=== PATIENT | female | born 1930 | race Caucasian/White ===

== ENCOUNTER 2017-12-11 14:27 | Inpatient (IN) | payer OTHER ==
[~2017-12-11] VITALS: Ht 157.5 cm; Wt 103.4 kg
[~2017-12-11 14:27] MED LIST: APAP650 PO; AVELOX400 MG PO; AZITHROMYCIN 2250 MG PO; BUMETANIDE2 M1 PO; BUMEX2 MG PO; BUPROPION PO; CARVEDILOL12.5 MG; CARVEDILOL12.5 MG PO; CENTRUM SILVER1 EACH PO; COUMADIN 2 MG TA2 M1 PO; COUMADIN 2.5MG2.5 M1 PO; COZAAR 50 MG TA50 M1 PO; COZAAR 50 MG TA50 MG PO; CRESTOR20 MG PO; DARVOCET-N 1001 EACH PO; GLUCOTROL10 MG PO; JANUVIA100 MG PO; KEFLEX500 MG PO; KLOR-CON 10 ER10 MEQ PO; KLOR-CON 1010 MEQ PO; LOPRESSOR50 PO; LUMIGAN2.5 M1 OP; MAGNES; MAGNESIUM400 MG PO; MECLIZINE 25 MG25 M1 PO; MECLIZINE HCL12.5 MG; MOTION SICKNESS25 M4 PO; MUCINEX TA600 MG/TA1 PO; MUCINEX TA600 MG/TA2 PO; MUCINEX600 MG PO; MULTIPLE VITAM1 EAC3 PO; NYAMYC15 GM TOP; NYSTATIN 100,0015 G1 TOP; OS-CAL 500+D C1 EACH PO; OS-CAL 500+D31 EAC1 PO; PEPCID40 MG; PHENADOZ25 MG RC; PHENERGAN 25 MG25 M1 PO; PREDNISONE 20 M20 M1 PO; SOTALOL 120 MG120 MG PO; SOTALOL120 MG PO; SYNTHROID75 MCG PO; WELLBUTRIN 100100 M1; WELLBUTRIN 100100 MG PO; XIFAXAN550 M1 PO; XOPENEX 0.63 MG/3 M1 IH; XOPENEX 1.25 MG/3 ML IH; XOPENEX HF1 UDINHALE IH; XOPENEX0.63 MG/3 IH; ZOFRAN ODT4 MG PO
[2017-12-11 14:34] VITALS: BP 156/62
[2017-12-11 14:58] LABS: ABSOLUTE BASOPHILS 0.1 thou/uL (0.0-0.2); ABSOLUTE EOSINOPHILS 0.4 thou/uL (0.0-0.7); ABSOLUTE LYMPHOCYTES 2.1 thou/uL (0.8-5.3); ABSOLUTE MONOCYTES 0.7 thou/uL (0.0-1.2); ABSOLUTE NEUTROPHILS 6.3 thou/uL (1.6-8.1); BASOPHILS 0.8 %; EOSINOPHILS 3.9 %; HEMATOCRIT 41.8 % (37.0-47.0); HEMOGLOBIN 13.8 gm/dL (12.0-15.0); LYMPHOCYTES 22.2 %; MCH 29.1 pg (26.0-34.0); MCHC 33.1 g/dL (28.0-37.0); MCV 87.9 fL (80.0-100.0); MONOCYTES 7.7 %; MPV 8.5 fl. (7.2-11.1); NUCLEATED RBCS 0 /100WBC; PLATELET COUNT* 223 thou/uL (150-400); POLYS 65.4 %; RBC 4.75 mil/uL (4.20-5.00); RDW-CV 15.4 % (10.5-14.5); WBC 9.6 thou/uL (4.0-11.0)
[2017-12-11 15:07] LABS: CALCIUM 9.2 mg/dL (8.5-10.1); CREATININE 1.9 mg/dL (0.6-1.3); POTASSIUM 4.6 mmol/L (3.5-5.1)
[2017-12-11 15:11] LABS: ALBUMIN 3.5 g/dL (3.4-5.0); TOTAL BILIRUBIN 0.5 mg/dL (<0.1-1.0); TOTAL PROTEIN 6.3 g/dL (6.4-8.2)
--- NOTE | 2017-12-11 19:43 | NUR ---
REC REPROT FROM ED-RN AT THIS TIME.
[2017-12-11 19:48] VITALS: BP 123/44
[2017-12-11 20:30] VITALS: BP 119/59
[2017-12-11] MEDS ORDERED: PACERONE 200 M200 M1 PO (23:37)
[2017-12-11] MEDS ORDERED: CLARITIN10 MG PO (23:38)
[2017-12-11] MEDS ORDERED: PROBIOTIC1 EAC1 PO (23:38)
[2017-12-11] MEDS ORDERED: ELIQUIS5 MG PO (23:38)
[2017-12-11] MEDS ORDERED: REFRESH TEARS15 ML OPHTHALMIC (23:39)
[2017-12-11] MEDS ORDERED: ARTHRITIS PAIN650 M3 PO (23:41)
[2017-12-12] VITALS: BP 151/57
--- NOTE | 2017-12-12 00:48 | NUR ---
PT A/O X 3-4, RA, A/V PACED ON THE MONITOR, ADMIT ASSESSMENT COMPLETED, PICTURES TAKEN OF BILAT UNDERBREAST AREAS-SEE CHART, SON ARRIVED AND PROVIDED WRITTED LIST OF HOME MEDICATIONS AND STATED SHE IS A DNR, PT CONFIRMED DNR STATUS, SPOKE TO DR MG REGARDING MEDICATIONS ORDERED/ADMINISTERED BASED OFF HIS ENTERED ORDERS IN [place] AND THAT THE LIST THE SON PROVIDED HAS BEEN COMPARED WITH CHANGES MADE TO THE HOME MED REC AT THAT TIME, DR MG STATED HE WILL REVIEW THE CHANGES IN THE MORNING, DNR STATUS CHANGE APPROVED BY DR MG AND ENTERED BY ME AT THAT TIME WELL PTS HOME MEDICATION FOR DIZZINESS, PT HAS FELT VERY NAUSEOUS, ZOFRAN GIVEN, PT SO FAR TOLERATED PO MED FOR HER DIZZINESS, SON AT BED SIDE FOR THE NIGHT, VSS, HOURLY ROUNDING/FALL PRECAUTIONS IN PLACE WITH BED IN LOW LOCKED POSITION WITH CALL LIGHT AT HER SIDE, WILL CONT TO MONITOR.
[2017-12-12 04:25] VITALS: BP 129/46
[2017-12-12 06:00] LABS: URINE BILIRUBIN NEGATIVE (Negative); URINE BLOOD NEGATIVE (Negative); URINE CLARITY CLEAR; URINE COLOR YELLOW; URINE GLUCOSE-RANDOM NEGATIVE (Negative); URINE KETONES NEGATIVE (Negative); URINE LEUKOCYTES-REFLEX NEGATIVE (Negative); URINE NITRITE-REFLEX NEGATIVE (Negative); URINE PROTEIN NEGATIVE (Negative); URINE UROBILINOGEN 0.2 E.U./dl (0.2-1.0)
--- NOTE | 2017-12-12 06:12 | NUR ---
PT UNABLE TO TOLERATE TURNS DUE TO HER NAUSEA. ZOFRAN ADMINISTERED X2 THUS FAR AND HOME MED FOR DIZZINESS GIVEN ONCE. NO OTHER CHANGES WITH PT THUS FAR. SON STILL AT BEDSIDE.
[2017-12-12] MEDS ORDERED: SYNTHROID50 MCG PO (06:32)
--- NOTE | 2017-12-12 08:15 | NUR ---
ASSUMED PT. CARE AND RECEIVED REPORT AT 0730. PT A/OX4, VSS, MONITOR ON TRACING AV PACED. PT. ON RA 94%. PT. TONAWANDA, REQUIRING STAFF TO COMMUNICATE BY WRITING DOWN INFO. PT. DENIES LEG PAIN INITIALLY, UNTIL SHE IS UP TO BSC THEN STATES IT IS BETTER 4/10 THAN LAST NIGHT, BUT STILL PRESENT. DISCUSSED GETTING PO PAIN MED ORDERED FOR HER BECAUSE SHE DOES NOT WANT MORPHINE. PT. SON AT BEDSIDE. FULL ASSESSMENT COMPLETED, REFER TO CHARTING. FALL PRECAUTIONS IN PLACE, WILL CONTINUE WITH PLAN OF CARE.
[2017-12-12 09:30] VITALS: BP 116/52
[2017-12-12 12:00] VITALS: BP 106/53
--- NOTE | 2017-12-12 12:23 | EKG ---
[place] [address] ELECTROCARDIOGRAM REPORT Name: JOELKENNETHSami Keller Room: [address] ADM IN M.R.#: [id number] Admission: 12/11/17 Attend Phys: Kamran Bell, Discharge: Date of : 32 Report #: [id number] THIS REPORT FOR: //name// [facility] ED Test Date: 2017-12-11 Test Time: 14:49:20 Pat Name: ANIBAL MALDONADO Department: Room: [facility] Gender: F Grant Specialist: Esme WELLINGTON : 1930 Requested By: Nadia Monroe Order Number: [id number] MD: Mt Zacarias Measurements Intervals [place] Rate: 61 P: 139 SD: 141 QRS: -64 QRSD: 166 T: 49 QT: 598 QTc: 603 Interpretive Statements Atrial-ventricular dual-paced rhythm No further analysis attempted due to paced rhythm Baseline wander in lead(s) I,III,aVL Compared to ECG 10/15/2016 02:54:51 Atrial-paced complex(es) or rhythm no longer present Right bundle-branch block no longer present Left ventricular hypertrophy no longer present Electronically Signed On 12-12-2017 12:23:27 CLOSER ON by Mt Zacarias [email or web address] <ELECTRONICALLY SIGNED> By: Mt Zacarias MD, [facility] 12/12/17 1223 1449 1449 Mt Zacarias MD, [facility] /EPI
[2017-12-12 12:51] LABS: HEMATOCRIT 40.2 % (37.0-47.0); HEMOGLOBIN 13.2 gm/dL (12.0-15.0); MCH 29.3 pg (26.0-34.0); MCHC 32.9 g/dL (28.0-37.0); MCV 88.9 fL (80.0-100.0); MPV 8.7 fl. (7.2-11.1); RBC 4.52 mil/uL (4.20-5.00); RDW-CV 15.5 % (10.5-14.5); WBC 8.4 thou/uL (4.0-11.0)
[2017-12-12 12:58] LABS: CALCIUM 8.4 mg/dL (8.5-10.1); CREATININE 1.7 mg/dL (0.6-1.3); MAGNESIUM 1.8 mg/dL (1.8-2.4); POTASSIUM 4.4 mmol/L (3.5-5.1)
[2017-12-12 15:30] VITALS: BP 89/38
--- NOTE | 2017-12-12 19:37 | NUR ---
PT. TREATED WITH TRAMADOL FOR LEG PAIN, TOLERATED WELL AND DECREASED PAIN IN LE. MID AFTERNOON PT. STARTED C/O RIGHT SHOULDER PAIN. INITIALLY TREATED WITH ICEY HOT AND COLD PACK. PT. BLOOD PRESSURE TO LOW TO GIVEN IV PAIN MED 90'S/40'S. DR. MG MADE AWARE OF PT. C/O AND BP, ORDERS RECEIVED FOR 500ML FLUID BOLUS. PT. ALSO BEGAN C/O NAUSEA, TREATED WITH IV ZOFRAN. PT. COMPLETED XRAYS PER ORDERS TO ASSESS ABD/SHOULDER. WILL HAVE ULTRASOUND IN MORNING. PT. SON AT BEDSIDE THROUGH OUT THE DAY, UPDATED ON PLAN OF CARE. PT. UP TO CHAIR FOR COMPLETE BATH/HAIR WASHING. HOURLY ROUNDING COMPLETED THROUGH OUT THE DAY FOR PT. SAFETY.
[2017-12-12 21:00] VITALS: BP 111/52
[2017-12-13] VITALS: BP 105/43
--- NOTE | 2017-12-13 01:55 | NUR ---
PT A/OX4, RA, A/V PACED ON THE MONITOR, UP WITH 1 TO BSC, STRESS INCONT, Q2T, PAIN/NAUSEA/DIZZINESS TREATED, MEDS/ASSESSMENT COMPLETED, FALL PRECAUTIONS IN PLACE WITH BED ALARM SET, HOURLY ROUNDING IN PLACE, VSS, WILL CONT TO MONITOR. SON AT BEDSIDE OVER NIGHT.
[2017-12-13 03:57] VITALS: BP 105/55
[2017-12-13 05:22] LABS: HEMATOCRIT 37.5 % (37.0-47.0); HEMOGLOBIN 12.3 gm/dL (12.0-15.0); MCHC 32.7 g/dL (28.0-37.0); MCV 88.7 fL (80.0-100.0); MPV 9.7 fl. (7.2-11.1); RBC 4.23 mil/uL (4.20-5.00); RDW-CV 15.7 % (10.5-14.5); WBC 9.7 thou/uL (4.0-11.0)
[2017-12-13 05:50] LABS: CREATININE 2.1 mg/dL (0.6-1.3); MAGNESIUM 1.9 mg/dL (1.8-2.4); POTASSIUM 5.3 mmol/L (3.5-5.1)
[2017-12-13 11:53] VITALS: BP 104/50
[2017-12-13 12:04] LABS: CALCIUM 8.2 mg/dL (8.5-10.1); CREATININE 2.4 mg/dL (0.6-1.3)
[2017-12-13 12:05] LABS: POTASSIUM 5.3 mmol/L (3.5-5.1)
--- NOTE | 2017-12-13 12:23 | NUR ---
Nutrition: Consult received for "pt doesn't wear teeth." Pt was asleep at time of visit, 12:00. Diet is now ordered as Mech Chopped with CHO count. Wt: 220# which is usual. K+ 5.3, BG 200s. Pt received DM educ in 2008. Hopeful for good intake of Mech-Chopped diet and better BG control. No other nutrition interventions needed at this time. Will follow up per protocol. Low nutrition risk.
--- NOTE | 2017-12-13 12:51 | NUR ---
Pt sound asleep when CM went to assess. Cm left message for Pt's family regarding living situation. CM will f/u later.
--- NOTE | 2017-12-13 13:00 | NUR ---
DR. GUERRERO INTO ASSESS PT. BMP RESULTS GIVEN TO ON FLOOR, CREATINE UP TO 2.4. ORDER RECEIVED FOR FLUID BOLUS OF 100ML. IV ASSESS TO ENSURE NOT INFILTRATED AND SHE IS RECEIVING IVF. APPEARS TO BE INTACT, NEW IV STARTED JUST TO ENSURE INFUSION AND IVF BOLUS INITIATED PER ORDER. PT. NOT RESPONDING WHEN STUCK WITH NEEDLE AND WILL NOT AROUSE WITH NORMAL ATTEMPTS. DEEP STERNAL RUB NEEDED FOR PT. TO RESPONDE. PT. STATED WHEN AROUSED TO "STOP, I DONT' WANT TO BE RESUSCITATED". DR. GUERRERO ON UNIT, NOTIFIED OF PT. CURRENT STATE. NEW ORDER FOR ABG OBTAINED. WILL CONTINUE TO MONITOR.
--- NOTE | 2017-12-13 13:14 | NUR ---
CM ASSESSMENT: CM spoke with Pt's son, Sawyer, via phone. Son states that Pt is IONE. Pt resides at home with her granddaughter, who assists with ADLs. Pt has a pd CG in the home on Wednesday- for 8 hours/day. Hx of HH, son does not remember the name of the agency. Hx of Skilled at [facility]. Son believes that Pt could benefit from a skilled stay, but also knows that Pt did not like her stay while at [facility]. Plan is for Pt to return home with HH. Continue to awake call back from Pt's granddaughter. Following.
--- NOTE | 2017-12-13 14:40 | NUR ---
DR. GUERRERO NOTIFIED THAT PT. IS REFUSING ABG. FAMILY AT BEDSIDE AND AWARE. STATES SHE DOES NOT WANT TO WEAR BIPAP ANYWAY, SO NO REASON IN DOING THE TEST. PT. IS MORE RESPONSIVE WITH STAFF CURRENTLY. SHE WILL TELL US TO LEAVE HER ALONE WHEN ATTEMPTING TO DO CARE.
[2017-12-13 16:57] VITALS: BP 114/58
[2017-12-13 17:07] LABS: GLYCOHEMOGLOBIN (HGB A1C) 9.2 % (4.8-5.6)
--- NOTE | 2017-12-13 17:38 | NUR ---
PT. BECOMING MORE ALERT, AWAKENING. PT. UP TO BS AND CHAIR TO VISIT WITH FAMILY. PT. BACK TO WHERE SHE WAS YESTERDAY WITH COGNITION. TREATED WITH OXYCODONE THIS AFTERNOON FOR PAIN AND STATED RELIEF OF PAIN AT THIS TIME. SHE ALSO STATED THAT THE LIDOCAINE PATCH HELPED WELL. PT. APPETITE POOR. SHE STATES THE ONLY THING THAT SOUNDS GOOD IS ICE CREAM, SHE HAS EATEN ICE CREAM ONLY FOR BREAKFAST AND DINNER. HOURLY ROUNDING COMPLETED THROUGH OUT THE DAY FOR PT. SAFETY.
[2017-12-13 20:00] VITALS: BP 111/57
--- NOTE | 2017-12-13 23:09 | NUR ---
PT A/OX3, RA, PACE RHYTHM ON THE MONITOR, VSS, REPORTED 0/10 PAIN, MEDS/ASSESSMENT PER CHARTING, HOURLY ROUNDING IN PLACE, FALL PRECAUTIONS IN PLACE WITH BED IN LOW LOCKED POSITION WITH ALARM SET, CALL LIGHT IN REACH, PT UP TO BSC WITH ASSIST X1, REQUIRES ASSIST X2 TO BOOST IN BED, PT REPORTED HER SON LEFT TODAY AND SHE WISHES HE'D COME BACK TO VISIT, NYSTATIN PWDR UTILIZED, PAIN PATCH D/C'ED AT , INFORMED PT SHE WILL HAVE IT PLACED ON AGAIN IN THE AM, WILL CONT TO MONITOR.
[2017-12-14] VITALS: BP 113/59
[2017-12-14 04:13] VITALS: BP 116/48
[2017-12-14 05:08] LABS: HEMATOCRIT 38.7 % (37.0-47.0); HEMOGLOBIN 12.5 gm/dL (12.0-15.0); MCH 29.6 pg (26.0-34.0); MCHC 32.2 g/dL (28.0-37.0); RBC 4.21 mil/uL (4.20-5.00); RDW-CV 16.8 % (10.5-14.5); WBC 10.2 thou/uL (4.0-11.0)
[2017-12-14 05:45] LABS: ALBUMIN 2.9 g/dL (3.4-5.0); CREATININE 2.4 mg/dL (0.6-1.3); MAGNESIUM 1.8 mg/dL (1.8-2.4); PHOSPHORUS* 4.3 mg/dL (2.5-4.9)
[2017-12-14 05:46] LABS: POTASSIUM 3.8 mmol/L (3.5-5.1)
[2017-12-14 08:30] VITALS: BP 110/83
--- NOTE | 2017-12-14 08:30 | NUR ---
ASSUMED PT. CARE AND RECEIVED REPORT AT 0730. PT A/OX4, VSS, MONITOR ONT RACING AV PACED. PT. ON RA @ 92%. PT. MORE ALERT AND ENERGENTIC THIS MORNING. UP TO BSC AND THEN CHAIR FOR BREAKFAST. PT. ATE 100% ON BREAKFAST. C/O OF PAIN IN LEGS WITH ACTIVITY, TREATED WITH PRN MED. FULL ASSESSMENT COMPLETED, REFER TO CHARTING. RIGHT FOREARM IV INFILTRATED, IV REMOVED AND FLUIDS RESTARTED IN 2ND IV ALREADY IN PLACE. LIGHT PRESSURE WRAP PLACED ON ARM AT INFILTRATE FOR PT. COMFORT. CALL LIGHT IN REACH, WILL CONTINUE WITH PLAN OF CARE.
[2017-12-14 11:54] VITALS: BP 121/49
--- NOTE | 2017-12-14 15:49 | CON ---
[address] [address] CONSULTATION Name: ANIBAL MALDONADO Room: [address] IN .R.#: [id number] Admission: 12/11/17 Attend Phys: Kamran Bell, Discharge: Date of : 32 Report #: [id number] THIS REPORT FOR: //name// CC: ASHLEY physician/PCP Kamran Bell DATE OF SERVICE: 12/13/2017 REQUESTING PHYSICIAN: Dr. Bell. REASON FOR CONSULTATION: Acute kidney injury. HISTORY OF PRESENT ILLNESS: An 87-year-old female who was admitted 12/11/2017 with bilateral lower extremity edema and elevated creatinine. I am asked to see for elevated creatinine. On 12/11/2017, her creatinine was 1.9, then up to 2.1, then up to 2.4 today. She presently appears to be comfortable. She is very hard of hearing. She has family present at the bedside. She presently does not have any complaints other than chronic leg pain. She has also been having some nausea. REVIEW OF SYSTEMS: Constitutional, psych, heme, eyes, ENT, respiratory, cardiac, GI, , endocrine, all negative except as documented above. PAST MEDICAL HISTORY: Diabetes, hypothyroidism, hypertension, chronic obstructive pulmonary disease, history of congestive heart failure, history of knee surgery right and left, cataracts. SOCIAL HISTORY: No tobacco. FAMILY HISTORY: Not pertinent in this 87-year-old female. CURRENT MEDICATIONS: Reviewed. PHYSICAL EXAMINATION: VITAL SIGNS: Blood pressure 104/50, pulse 60, respirations 18 and temperature 36.3. GENERAL: No acute distress. HEENT: Eyes, extraocular intact. Ears, externally normal. Very hard of hearing. CARDIOVASCULAR: Regular rate. LUNGS: Decreased breath sounds. ABDOMEN: Soft. LYMPHATICS: Positive swelling. PSYCHIATRIC: Awake, alert. LABORATORY DATA: White blood cell count 9.7, hemoglobin 12.3, platelets 162[place] [address] CONSULTATION Name: ANIBAL MALDONADO Room: [address] IN [facility]#: [id number] Admission: 12/11/17 Attend Phys: Kamran Bell, Discharge: Date of : 32 Report #: [id number] Sodium 130, potassium 5.3, chloride 103, bicarbonate 17, BUN 44, creatinine 2.4, glucose 269, calcium 8.2. ASSESSMENT: 1. Acute kidney injury with a 12/11/2017 creatinine at 1.9, up to 2.4 on 12/13/2017. Urinalysis was okay. Ultrasound did not show any acute kidney findings. 2. Hyponatremia. 3. Hyperkalemia. 4. Metabolic acidosis. 5. Chronic obstructive pulmonary disease. 6. Coronary artery disease. 7. Diabetes. 8. Chronic kidney disease stage 3 with 2017 ultrasound showing renal atrophy and 2016 ultrasound showing kidneys bilaterally less than 9 cm in size. In 12/2015, creatinine was 1.1. PLAN: 1. Losartan was just stopped. Januvia has been stopped. 2. Discontinue lactated Ringers. We will adjust IV fluids and add bicarbonate. 3. Pharmacy consult to renally dose the tramadol. 4. We will monitor closely. Hopefully, with stopping the losartan and gentle hydration renal function will stabilize and improve. We will check labs again in the a.m. Thank you for requesting my opinion in the care and management of this patient. <ELECTRONICALLY SIGNED> By: Gabrielle Rubalcava MD 12/14/17 1549 1615 1901Aignacio Rubalcava MD /nt
[2017-12-14 16:36] VITALS: BP 104/44
[2017-12-14 20:00] VITALS: BP 107/45
--- NOTE | 2017-12-14 20:03 | NUR ---
PT. STABLE THROUGH OUT SHIFT. UP TO CHAIR FOR MEALS. GOOD APPETITE AT BREAKFAST AND DINNER, ATE ICE CREAM ONLY AT LUNCH. PT. TREATED FOR NAUSEA TODAY. NO FURTHER COMPLAINTS OF PAIN SINCE THIS MORNING. PT. MAKING STATEMENTS A FEW TIMES TODAY "I AM READY TO NOW", AND TALKING ABOUT FAMILY MEMBER DOING HER HAIR AT HER . WORKED WITH THERAPY, TOLERATED WELL. HOURLY ROUNDING COMPLETED THROUGH OUT THE DAY FOR PT. SAFETY.
[2017-12-15] VITALS (7 sets, daily range): BP systolic 104–147; BP diastolic 36–77
--- NOTE | 2017-12-15 03:52 | NUR ---
PT ALERT ORIENTED. PROFOUNDLY [place]. TELEMETRY SHOWS AV PACED. 1/2NS WITH WITH 75MEQ SODIUM BICARB INFUSING AT 100MLS/HR. ANTIFUNGAL POWDER TO YEAST AREA UNDER LEANNE BREASTS. UP TO BSC WITH ASSIST OF ONE. WILL CONTINUE TO MONITOR.
[2017-12-15 05:40] LABS: ALBUMIN 2.9 g/dL (3.4-5.0); CALCIUM 8.4 mg/dL (8.5-10.1); CREATININE 2.2 mg/dL (0.6-1.3); MAGNESIUM 1.8 mg/dL (1.8-2.4); PHOSPHORUS* 4.1 mg/dL (2.5-4.9); POTASSIUM 3.2 mmol/L (3.5-5.1)
[2017-12-15 05:45] LABS: HEMATOCRIT 37.1 % (37.0-47.0); HEMOGLOBIN 12.1 gm/dL (12.0-15.0); MCH 28.7 pg (26.0-34.0); MCHC 32.7 g/dL (28.0-37.0); MCV 87.7 fL (80.0-100.0); MPV 9.2 fl. (7.2-11.1); RBC 4.24 mil/uL (4.20-5.00); RDW-CV 15.3 % (10.5-14.5); WBC 12.3 thou/uL (4.0-11.0)
--- NOTE | 2017-12-15 10:59 | NUR ---
RECEIVED PT CARE 0700. PT IS ALERT AND ORIENTED X4. VSS. MACHINE BENDER TRACING AN AV PACED RHYTHM. C/O RIGHT SHOULDER PAIN. PRN PAIN MEDICATION GIVEN WITH GOOD RELIEF. AM ASSESSMENT CHARTED. MEDS PER MAR. UP WITH ASSIST X1 TO BEDSIDE COMMODE. SHE IS VERY HARD OF HEARING. CALL LIGHT WITHIN REACH. WILL CONTINUE TO MONITOR.
--- NOTE | 2017-12-15 12:21 | NUR ---
CONTINUE TO FOLLOW, MET WITH PT AND SPOKE WITH LEXUS OVER THE PHONE. ROXANNE PLANS TO GO OUT OF TOWN ON WEDNESDAY MORNING, BUT PT'S SON WILL BE IN TOWN AND ROXANNE HAS ARRANGED FOR THE PAID CAREGIVER TO STAY WITH PT AROUND THE CLOCK. THEY ARE INTERESTED IN HH AND CHOSE [facility] SHE HAS HAD THEIR SERVICE BEFORE. CALLED AND FAXED INITIAL REFERRAL TO [facility]. ROXANNE STATED PT DOESN'T WALK VERY MUCH AT HOME AND GETS ASSIST WITH ADLS. WILL FOLLOW
[2017-12-16] VITALS: BP 118/94
[2017-12-16 04:20] VITALS: BP 103/50
[2017-12-16 05:15] LABS: HEMATOCRIT 33.8 % (37.0-47.0); HEMOGLOBIN 11.4 gm/dL (12.0-15.0); MCH 29.4 pg (26.0-34.0); MCHC 33.7 g/dL (28.0-37.0); MCV 87.3 fL (80.0-100.0); MPV 8.9 fl. (7.2-11.1); RBC 3.87 mil/uL (4.20-5.00); RDW-CV 15.9 % (10.5-14.5); WBC 9.1 thou/uL (4.0-11.0)
--- NOTE | 2017-12-16 05:32 | NUR ---
PATIENT PROGRESSING TOWARDS GOALS: PATIENT A&OX4, MATCH-E-BE-NASH-SHE-WISH BAND. VSS. GENERAL OPERATIONS MANAGER TRACING AV PACED. PATIENT REMAINS ON ROOM AIR WITH SATS >92%. PATIENT HAD C/O PAIN IN RIGHT SHOULDER THAT WAS RELIEVED WITH BENGAY CREAM AND RELAXATION. PATIENT HAS RESTED WELL THROUGHOUT SHIFT. HOURLY ROUNDING OBSERVED. CALL LIGHT WITHIN REACH
[2017-12-16 06:11] LABS: ALBUMIN 2.6 g/dL (3.4-5.0); CALCIUM 8.3 mg/dL (8.5-10.1); MAGNESIUM 1.7 mg/dL (1.8-2.4); PHOSPHORUS* 3.3 mg/dL (2.5-4.9); POTASSIUM 3.5 mmol/L (3.5-5.1)
[2017-12-16 07:40] VITALS: BP 106/70
--- NOTE | 2017-12-16 10:08 | NUR ---
RECIEVED REPORT FROM LOIS AND ASSUMED CARE OF PT AT 0730. PT IS A/O X4, VSS, LUNGS ARE CLEAR BUT DIMINISHED ON RA. TRACING AV PACED ON MONITOR. IV LEFT FOREARM PATENT SALINE LOCKED. PT IS CALM, COOPERATIVE, AND PLEASANT. PT C/O BACK PAIN- MEDICATION GIVEN AND REPOSITIONED UP TO CHAIR FOR RELIEF. GOALS FOR THE DAY WERE DISCUSSED TO GET UP TO CHAIR FOR MEALS AND PAIN MANAGEMENT. PT EATING BREAKFAST IN CHAIR WITH CALL LIGHT AND FALL PRECAUTIONS IN PLACE. WILL CONTINUE TO MONITOR.
[2017-12-16] MEDS ORDERED: LIDOPATCH1 EACH TOP (11:45)
[2017-12-16] MEDS ORDERED: TRAMADOL 50 MG50 MG PO (11:45)
[2017-12-16] MEDS ORDERED: ACETAMINOPHEN325 M1 PO (11:45)
[2017-12-16 11:58] VITALS: BP 121/51
--- NOTE | 2017-12-16 14:06 | NUR ---
ORDERS RECEIVED FOR DC HOME WITH HH. CALLED AND FAXED DC ORDERS TO [facility]. CALL TO RUFINO/ROYCE. SHE WILL HAVE HER DAD PICK PT UP. NO OTHER NEEDS ID'D
--- NOTE | 2017-12-16 14:57 | NUR ---
DISCHARGE PAPERWORK AND SCRIPTS GONE OVER AND GIVEN TO PT AND FAMILY MEMBER. IV REMOVED AND HEART MONITOR TAKEN OFF. PT WALKED OUT BY TABBY TO FAMILY VEHICLE WITH ALL PERSONAL BELONGINGS @ 8702.
== END 2017-12-16 15:03 | disposition home health service (06) | DRG 683 ==
LOC: M.ERS 14:27 → M.TBA-ER 16:09 → M.2W 16:09
PROVIDERS: Internal Medicine; Physician Assistant; ADMIT Family Medicine
DX: N17.9 Acute kidney failure, unspecified (principal); E87.1 Hypo-osmolality and hyponatremia; E87.2 Acidosis; E03.9 Hypothyroidism, unspecified; J44.9 Chronic obstructive pulmonary disease, unspecified; I50.9 Heart failure, unspecified; E87.5 Hyperkalemia; N18.3 Chronic kidney disease, stage 3 (moderate); E11.22 Type 2 diabetes mellitus with diabetic chronic kidney disease; I25.10 Atherosclerotic heart disease of native coronary artery without angina pectoris; G89.29 Other chronic pain; E11.65 Type 2 diabetes mellitus with hyperglycemia; R26.81 Unsteadiness on feet; I87.8 Other specified disorders of veins; E86.0 Dehydration; Z79.899 Other long term (current) drug therapy; Z88.0 Allergy status to penicillin; Z95.0 Presence of cardiac pacemaker; I25.2 Old myocardial infarction; Z88.8 Allergy status to other drugs, medicaments and biological substances; Z88.1 Allergy status to other antibiotic agents; Z91.041 Radiographic dye allergy status; Z98.42 Cataract extraction status, left eye; Z28.21 Immunization not carried out because of patient refusal; Z98.41 Cataract extraction status, right eye

== ENCOUNTER 2018-01-25 17:06 | Inpatient (IN) | payer OTHER ==
[~2018-01-25] VITALS: Ht 162.6 cm; Wt 90.3 kg
[~2018-01-25 17:06] MED LIST changes: +ACETAMINOPHEN325 M1 PO; +ARTHRITIS PAIN650 M3 PO; +CLARITIN10 MG PO; +ELIQUIS5 MG PO; +LIDOPATCH1 EACH TOP; +PACERONE 200 M200 M1 PO; +PROBIOTIC1 EAC1 PO; +REFRESH TEARS15 ML OPHTHALMIC; +SYNTHROID50 MCG PO; +TRAMADOL 50 MG50 MG PO
[2018-01-25 17:12] VITALS: BP 132/60
[2018-01-25] MEDS ORDERED: DIFLUCAN200 MG PO (17:24)
[2018-01-25] MEDS ORDERED: CLONAZEPAM 0.50.5 M1 PO (17:24)
[2018-01-25] MEDS ORDERED: FISH OIL 1,001000 M2 PO (17:25)
[2018-01-25] MEDS ORDERED: PROTONIX40 M1 PO (17:25)
--- NOTE | 2018-01-25 17:40 | NUR ---
PT HAS SCABBED WOUND ON BRIDGE OF NOSE, PT FAMILY REPORTS IT IS FROM A PREVIOUS HOSPITAL STAY THAT HAS BEEN TREATED WITH ABX WITHOUT HEALING.
[2018-01-25 18:02] LABS: BE 3.5 mmol/L (-2 to +3); HCO3 26.9 mmol/L (22.0-26.0); PCO2 36.9 mmHg (35.0-45.0); PO2 81.8 mmHg (75.0-100.0); pH 7.481 (7.340-7.450)
[2018-01-25 18:02] LABS: HEMATOCRIT 42.4 % (37.0-47.0); HEMOGLOBIN 13.9 gm/dL (12.0-15.0); MCH 28.7 pg (26.0-34.0); MCHC 32.7 g/dL (28.0-37.0); MCV 87.7 fL (80.0-100.0); MPV 8.9 fl. (7.2-11.1); NUCLEATED RBCS 0 /100WBC; PLATELET COUNT* 181 thou/uL (150-400); RBC 4.84 mil/uL (4.20-5.00); RDW-CV 17.2 % (10.5-14.5)
[2018-01-25 18:14] LABS: CREATININE 1.6 mg/dL (0.6-1.3)
[2018-01-25 18:16] LABS: POTASSIUM 2.7 mmol/L (3.5-5.1)
[2018-01-25 18:18] LABS: MAGNESIUM 1.8 mg/dL (1.8-2.4); TOTAL PROTEIN 6.4 g/dL (6.4-8.2)
[2018-01-25 18:43] LABS: ABSOLUTE LYMPHOCYTES 1.8 thou/uL (0.8-5.3); ABSOLUTE MONOCYTES 0.9 thou/uL (0.0-1.2); ABSOLUTE NEUTROPHILS 15.3 thou/uL (1.6-8.1)
[2018-01-25 18:44] LABS: ANISOCYTOSIS Occasional; PLATELET ESTIMATE ADEQUATE
[2018-01-25 20:35] VITALS: BP 133/65
[2018-01-25 23:56] VITALS: BP 123/68
--- NOTE | 2018-01-26 02:47 | NUR ---
RECIEVED REPORT FROM VOLUNTEER RECRUITMENT COORDINATOR, BRUCE, AND ASSUMED CARE OF PATIENT WHEN ADMITTED TO ROOM 231 AT 2039. PATIENT A&OX3-4, EXTREMEMLY HARD OF HEARING AND FAMILY STATES PATIENT HAS AN ONSET OF DEMENTIA. THERE ARE SOME COMMUNICATION BARRIERS , HOWEVER, PATIENT'S FAMILY PRESENT FOR ADMISSION HISTORY. PATIENT DID SAY "YES" TO HAVING THOUGHTS OF HARMING HERSELF. PATIENT IS ON 2L O2 NC WITH SATS >92%. PATIENT DENIES PAIN OR DISCOMFORT. CHEMICAL LABORATORY TESTER TRACING AV PACED. URINE SAMPLE STILL NEEDED, HOWEVER, PATIENT HAS NOT BEEN ABLE TO VOID SINCE TRANSFER. BLADDER SCAN COMPLETED-281 ML NOTED. PATIENT STATES SHE "WILL TRY AGAIN LATER." IVF INFUSING PER ORDERS. CALL LIGHT WITHIN REACH
[2018-01-26 04:27] VITALS: BP 148/59
[2018-01-26 05:42] LABS: ABSOLUTE BASOPHILS 0.1 thou/uL (0.0-0.2); ABSOLUTE LYMPHOCYTES 0.5 thou/uL (0.8-5.3); ABSOLUTE MONOCYTES 0.2 thou/uL (0.0-1.2); ABSOLUTE NEUTROPHILS 14.5 thou/uL (1.6-8.1); BASOPHILS 0.4 %; HEMATOCRIT 39.8 % (37.0-47.0); LYMPHOCYTES 3.1 %; MCH 28.5 pg (26.0-34.0); MCHC 32.7 g/dL (28.0-37.0); MCV 87.3 fL (80.0-100.0); MONOCYTES 1.1 %; MPV 8.9 fl. (7.2-11.1); NUCLEATED RBCS 0 /100WBC; PLATELET COUNT* 160 thou/uL (150-400); POLYS 95.4 %; RBC 4.55 mil/uL (4.20-5.00); WBC 15.2 thou/uL (4.0-11.0)
[2018-01-26 05:56] LABS: ALBUMIN 2.8 g/dL (3.4-5.0); CREATININE 1.5 mg/dL (0.6-1.3); MAGNESIUM 1.9 mg/dL (1.8-2.4); TOTAL BILIRUBIN 0.5 mg/dL (<0.1-1.0); TOTAL PROTEIN 6.2 g/dL (6.4-8.2)
[2018-01-26 05:57] LABS: POTASSIUM 4.4 mmol/L (3.5-5.1)
--- NOTE | 2018-01-26 06:01 | NUR ---
PATIENT PARTIALLY PROGRESSING TOWARDS GOALS: PATIENT'S POTASSIUM SUCCESSFULLY REPLACED-NOW 4.4. PATIENT IS ON THE BEDSIDE COMMODE AT THIS TIME TO ATTEMPT TO VOID. RECENT BLADDER SCAN REVEALED 518ML. HOURLY ROUNDING OBSERVED. CALL LIGHT WITHIN REACH
[2018-01-26 07:16] LABS: URINE BILIRUBIN NEGATIVE (Negative); URINE BLOOD TRACE (Negative); URINE CLARITY CLEAR; URINE COLOR YELLOW; URINE GLUCOSE-RANDOM NEGATIVE (Negative); URINE KETONES NEGATIVE (Negative); URINE LEUKOCYTES-REFLEX TRACE (Negative); URINE NITRITE-REFLEX NEGATIVE (Negative); URINE PROTEIN TRACE (Negative); URINE SPECIFIC GRAVITY >= 1.030 (1.005-1.030); URINE UROBILINOGEN 0.2 E.U./dl (0.2-1.0)
[2018-01-26 07:23] LABS: SQUAMOUS 4-10 Moderate /LPF (0-3)
[2018-01-26 07:24] LABS: AMORPHOUS URATES Moderate /LPF (None Seen); BACTERIA-REFLEX 1-9 Few /HPF (None Seen); HYALINE CASTS >10 Many /LPF (None Seen); MUCUS None Seen strn/LPF (None Seen); RENAL EPITHELIAL CELLS 4-10 Moderate /LPF (None Seen); URINE RBC 3-10 Few /HPF (0-2); URINE WBC-REFLEX 0-5 Rare /HPF (0-5)
--- NOTE | 2018-01-26 07:25 | NUR ---
CHNAGE OF SHIFT BEDSIDE REPORT GIVEN ASSUMED PATIENT CARE PATIENT SEEN AT BEDSIDE, ASLEEP
[2018-01-26 08:00] VITALS: BP 122/58
[2018-01-26 11:34] VITALS: BP 140/60
--- NOTE | 2018-01-26 13:11 | NUR ---
MET WITH PT AND SON/MATHEW TO DISCUSS HOME SITUATION/DC PLANNING. PT KNOWN TO CM FROM PREVIOUS HOSPITAL STAY. PT LIVES WITH HER GRANDDTR ROXANNE. SHE NEEDS ASSIST WITH ADLS, USES WALKER AND W/C. THEY HAVE PAID CG MPTH FOR 8HRS AND PT HAS [facility]. WANTS TO CONTINUE WITH THAT AT HOME. PT IS [place]. PER SON, HER DEMENTIA IS WORSE LATELY. HE STATED SHE DOESN'T DRINK OR EAT WELL, DOESN'T WEAR DENTURES. TALKED WITH HIM ABOUT THINGS TO TRY AT HOME TO INCREASE HER PO INTAKE. CALL TO [facility], MADE AWARE PT IN HOSPITAL. SON STATES VISITING PHYSICIANS FOLLOWS PT AT HOME IT'S HARD FOR HER TO GET OUT. DTR/NATE AND SON/MATHEW ARE DPOA. COPY ON CHART. WILL FOLLOW
[2018-01-26 16:00] VITALS: BP 127/50
--- NOTE | 2018-01-26 16:07 | EKG ---
[place] [address] ELECTROCARDIOGRAM REPORT Name: ANIBAL MALDONADO Room: [address] ADM IN M.R.#: [id number] Admission: 01/25/18 Attend Phys: Derian Ojeda Discharge: Date of : 32 Report #: [id number] THIS REPORT FOR: //name// [facility] ED Test Date: 2018-01-25 Test Time: 20:25:15 Pat Name: ANIBAL MALDONADO Department: Room: [address] Gender: F Drums Teacher: CAITLIN Victoria : 1930 Requested By: Nadia Turcios Order Number: [id number] Chanell MD: Miguel Banegas Measurements Intervals [place] Rate: 61 P: 0 SC: 172 QRS: -71 QRSD: 196 T: -74 QT: 547 QTc: 551 Interpretive Statements Atrial-ventricular dual-paced rhythm No further analysis attempted due to paced rhythm Compared to ECG 12/11/2017 14:49:20 No significant changes Electronically Signed On 01-26-2018 16:06:52 CDT by Miguel Banegas [email or web address] <ELECTRONICALLY SIGNED> By: Miguel Banegas MD, FAC 01/26/18 1606 24 24 Miguel Banegas MD, [facility] /EPI
--- NOTE | 2018-01-26 16:07 | EKG ---
[place] [address] ELECTROCARDIOGRAM REPORT Name: JOELANIBAL GARDNER Room: [address] ADM IN M.R.#: [id number] Admission: 01/25/18 Attend Phys: Derian Ojeda Discharge: Date of : 32 Report #: [id number] THIS REPORT FOR: //name// [facility] ED Test Date: 2018-01-25 Test Time: 20:24:40 Pat Name: ANIBAL MALDONADO Department: Room: [facility] Gender: F Revenue Director: CAITLIN Victoria : 1930 Requested By: Payton Roberts Order Number: [id number] MD: Miguel Banegas Measurements Intervals [place] Rate: 61 P: -77 FL: 173 QRS: -71 QRSD: 194 T: -74 QT: 581 QTc: 586 Interpretive Statements Atrial-ventricular dual-paced rhythm No further analysis attempted due to paced rhythm Baseline wander in lead(s) V6 Compared to ECG 12/11/2017 14:49:20 No significant changes Electronically Signed On 01-26-2018 16:06:47 CDT by Miguel Banegas [email or web address] <ELECTRONICALLY SIGNED> By: Miguel Banegas MD, FACC 01/26/18 1606 23 23 Miguel Banegas MD, FACC /EPI
--- NOTE | 2018-01-26 18:54 | NUR ---
PATIENT IN BED AND RESTING REMAINS A AND O X 4, FORGETFUL UPPER [place] A/V PACED LUNGS COARSE/DIM COUGH LOOSE BUT SUBWAY TRAIN OPERATOR O2 2L NC GOOD APPETITE LAST BM T-3 GOOD UO, INC AND UNABLE TO MEASURE UP WITH 1-2 ASSIST TO CHAIR BOTTOM/ROCAEL AREA RED SMALL SCAB ON NOSE C/O R SHOULDER PAIN AND TREATED WITH ULTRAM WITH SOME RELIEF ACCUCHECKS AC/HS 216/253/269 IV 22 GA R INDEX FINGER SL CALL LIGHT IN REACH AND INSTRUCTION GIVEN AND FOLLOWED BED ALARM SET
[2018-01-26 20:00] VITALS: BP 119/59
[2018-01-27] VITALS: BP 145/58
[2018-01-27 04:00] VITALS: BP 118/53
[2018-01-27 05:27] LABS: ABSOLUTE LYMPHOCYTES 1.2 thou/uL (0.8-5.3); ABSOLUTE MONOCYTES 1.3 thou/uL (0.0-1.2); ABSOLUTE NEUTROPHILS 16.2 thou/uL (1.6-8.1); BASOPHILS 0.1 %; EOSINOPHILS 0.1 %; HEMATOCRIT 40.7 % (37.0-47.0); HEMOGLOBIN 13.1 gm/dL (12.0-15.0); LYMPHOCYTES 6.2 %; MCH 28.5 pg (26.0-34.0); MCHC 32.1 g/dL (28.0-37.0); MCV 88.9 fL (80.0-100.0); MONOCYTES 6.9 %; MPV 8.9 fl. (7.2-11.1); NUCLEATED RBCS 0 /100WBC; PLATELET COUNT* 160 thou/uL (150-400); POLYS 86.7 %; RBC 4.58 mil/uL (4.20-5.00); RDW-CV 17.3 % (10.5-14.5); WBC 18.7 thou/uL (4.0-11.0)
--- NOTE | 2018-01-27 05:35 | NUR ---
PATIENT REMAINS STABLE THIS SHIFT- VSS. PATIENT REMAINS ON ROOM AIR WITH SATS >92%. PATIENT DENIES PAIN OR DISCOMFORT. NO RESPIRATORY DISTRESS NOTED, ALTHOUGH PATIENT'S LUNGS ARE COARSE WITH WHEEZES. PATIENT HAS TOLERATED TRANSFERRING TO BEDSIDE COMMODE. PATIENT HAS REMAINED CONTINENT OF URINE THROUGHOUT SHIFT. ORDERS FOR NYSTATIN POWDER RECIEVED FOR REDNESS/MALODOROUS ROCAEL AREA. HOURLY ROUNDING OBSERVED. CALL LIGHT WITHIN REACH
[2018-01-27 06:19] LABS: CALCIUM 9.6 mg/dL (8.5-10.1); CREATININE 1.7 mg/dL (0.6-1.3); POTASSIUM 4.1 mmol/L (3.5-5.1); TOTAL BILIRUBIN 0.3 mg/dL (<0.1-1.0); TOTAL PROTEIN 5.8 g/dL (6.4-8.2)
--- NOTE | 2018-01-27 07:40 | NUR ---
RECEIVED REPORT. ASSUMED CARE OF PT AT 0730. VSS. CARDIAC MONTIORING IN PLACE APACED. AM ASSESSMENT AND VITALS COMPLETED CHARTED. PT IS ALERT AND ORIENTED X2-3 PT CONFUSED AND FORGETFUL THIS AM. PT ON 2L PER NC WITH O2 SAT AT 96%. IV SALINE LOCKED. PT DENEIS ANY COMPLAINTS OF PAIN OR DISCOMFORT THIS AM. PT SITTING UP IN CHAIR. CALL LIGHT IS WITHIN REACH. WILL CONTINUE TO MONTIOR FOR DURAITON OF SHFIT.
[2018-01-27 08:17] VITALS: BP 128/58
[2018-01-27] MEDS ORDERED: LASIX 40 MG TAB40 M2 PO (10:28)
[2018-01-27] MEDS ORDERED: TYLENOL325 MG PO (10:30)
[2018-01-27 12:01] VITALS: BP 111/60
[2018-01-27 16:14] VITALS: BP 133/61
--- NOTE | 2018-01-27 17:00 | NUR ---
VSS. CARDIAC MONTIORING IN PLACE WITH NO CHANGES THIS SHIFT. PT PROGRESSING TOWARDS GOALS. PT REMAINS ON 2L PER NC. IV SALINE LOCKED. PT HAS NO COMPLAINTS OF PAIN OR DISCOMFORT THIS SHIFT. PT HAS BEEN UP TO CHAIR MAJROITY OF SHIFT. PT WORKED WITH THERAPIES THIS SHIFT. PT IS UP WITH ASSISTANCE X1. PT GIVEN PRN STOOL SOFTNER THIS SHIFT. HOURLY ROUNDING. CALL LIGHT IS WITHIN REACH. WILL CONTINUE TO MONTIOR FOR DURAITON OF SHIFT.
[2018-01-27 20:00] VITALS: BP 133/51
[2018-01-28 00:09] VITALS: BP 120/48
[2018-01-28 03:58] VITALS: BP 117/47
--- NOTE | 2018-01-28 03:58 | NUR ---
ALERT AND ORIENTED X 2-3. DENIES COMPLAINTS. RESTING IN BED. NO SIGNS OF DISTRESS, CONT. WITH PLAN OF CARE AT THIS TIME.
[2018-01-28 05:12] LABS: HEMATOCRIT 37.8 % (37.0-47.0); HEMOGLOBIN 12.3 gm/dL (12.0-15.0); MCH 28.7 pg (26.0-34.0); MCHC 32.5 g/dL (28.0-37.0); MCV 88.1 fL (80.0-100.0); MPV 8.7 fl. (7.2-11.1); RBC 4.29 mil/uL (4.20-5.00); RDW-CV 17.1 % (10.5-14.5); WBC 11.8 thou/uL (4.0-11.0)
[2018-01-28 05:25] LABS: ALBUMIN 2.8 g/dL (3.4-5.0); CALCIUM 9.5 mg/dL (8.5-10.1); CREATININE 1.8 mg/dL (0.6-1.3); POTASSIUM 3.5 mmol/L (3.5-5.1); TOTAL BILIRUBIN 0.3 mg/dL (<0.1-1.0); TOTAL PROTEIN 5.4 g/dL (6.4-8.2)
--- NOTE | 2018-01-28 07:25 | NUR ---
CHANGE OF SHIFT BEDSIDE REPORT GIVEN PATIENT SEEN IN BED ASLEEP BED ALARM SET ASSUMED PATIENT CARE
[2018-01-28 08:00] VITALS: BP 118/46
--- NOTE | 2018-01-28 10:52 | NUR ---
CONTINUE TO FOLLOW, PLAN IS FOR DC TODAY, AWAIT FINAL ORDERS. CALL TO SON/MATHEW. HE STATED THAT PLAN IS FOR PT TO RETURN HOME WITH HER HH. PT IS CURRENT WITH [facility]. FAMILY WILL BE HERE AFTERNOON. AWAIT FINAL ORDERS
[2018-01-28 10:53] VITALS: BP 118/46
[2018-01-28 12:53] VITALS: BP 177/79
[2018-01-28] MEDS ORDERED: LEVAQUIN 750 M750 MG PO (14:31)
[2018-01-28] MEDS ORDERED: MIRALAX17 GM PO (14:32)
[2018-01-28 16:00] VITALS: BP 140/57
--- NOTE | 2018-01-28 18:45 | NUR ---
PATIENT DISCHARGED TO HOME WITH H/H DC INFO GIVEN AND ACKNOWLEDGED AND SIGNED COPIES GIVEN LARGE BM PROIR TO DC IV AND HEART MONITOR REMOVED PERSONAL BELONGINGD RETURNED ASSISTED OUT VIA WC GOOD CONDITION TO WAITING CAR
== END 2018-01-28 18:37 | disposition home health service (06) | DRG 177 ==
LOC: M.ERS 17:06 → M.2W 18:58 → M.TBA-ER 18:58 → M.2W 20:34
PROVIDERS: Personal Emergency Response Attendant; ADMIT Internal Medicine
DX: J15.6 Pneumonia due to other Gram-negative bacteria (principal); I50.33 Acute on chronic diastolic (congestive) heart failure; N17.0 Acute kidney failure with tubular necrosis; N18.4 Chronic kidney disease, stage 4 (severe); N39.0 Urinary tract infection, site not specified; E44.0 Moderate protein-calorie malnutrition; Z66 Do not resuscitate; E11.9 Type 2 diabetes mellitus without complications; E03.9 Hypothyroidism, unspecified; I11.0 Hypertensive heart disease with heart failure; F31.9 Bipolar disorder, unspecified; I48.91 Unspecified atrial fibrillation; E78.5 Hyperlipidemia, unspecified; F41.9 Anxiety disorder, unspecified; K21.9 Gastro-esophageal reflux disease without esophagitis; E86.1 Hypovolemia; E87.6 Hypokalemia; E86.0 Dehydration; J44.9 Chronic obstructive pulmonary disease, unspecified; E66.9 Obesity, unspecified; Z68.34 Body mass index [BMI] 34.0-34.9, adult; I25.2 Old myocardial infarction; Z90.49 Acquired absence of other specified parts of digestive tract; Z90.710 Acquired absence of both cervix and uterus; Z95.0 Presence of cardiac pacemaker; Z79.01 Long term (current) use of anticoagulants; Z79.899 Other long term (current) drug therapy; Z88.0 Allergy status to penicillin; Z88.7 Allergy status to serum and vaccine; Z88.8 Allergy status to other drugs, medicaments and biological substances; Z88.1 Allergy status to other antibiotic agents; Z91.041 Radiographic dye allergy status